=== PATIENT | female | born 1970 | race Two or more races ===

== ENCOUNTER 2018-09-24 02:41 | Emergency (ER) | payer OTHER ==
[2018-09-24 03:00] VITALS: BMI 29.8
[2018-09-24] MEDS ORDERED: SODIUM CHLORIDE 0.9% 1000 ML INFUS.BAG IV SCH (04:00)
--- NOTE | 2018-09-24 04:00 | PDOC ---
History of Present Illness - General Chief Complaint: Pain Stated Complaint: ABD PAIN/FEVER Time Seen by Provider: 09/24/18 03:43 History Source: Patient Exam Limitations: No Limitations - History of Present Illness Travel History: No Initial Comments: 09/24/18 03:55 HISTORY OF PRESENT ILLNESS: 48-year-old woman past medical history of uterine fibroids presents emergency Department with 1 day of fever, weakness and abdominal pain. Patient reports took Tylenol earlier today help the pain which has been mildly relief since that time. She reports feeling "dehydrated" has been drinking plenty of fluids since earlier today. Patient reports feeling intermittent nausea but has not vomited. She denies any chest pain, shortness of breath, cough, diarrhea, rectal bleeding, dysuria, vaginal bleeding, vaginal discharge. No recent travel or sick contacts. PAST MEDICAL HISTORY: see hpi SURGICAL HISTORY: Denies ALLERGIES: No known drug allergies REVIEW OF SYSTEMS General/Constitutional: +fever and chills. Denies weakness, weight change. HEENT: Denies change in vision. Denies ear pain or discharge. Denies sore throat. Cardiovascular: Denies chest pain or shortness of breath. Respiratory: Denies cough, wheezing, or hemoptysis. Gastrointestinal: Denies vomiting, diarrhea or constipation. Denies rectal bleeding. +nausea, +abd pain Genitourinary: Denies dysuria, frequency, or change in urination. Musculoskeletal: Denies joint or muscle swelling or pain. Denies neck or back pain. Skin and breasts: Denies rash or easy bruising. Neurologic: Denies headache, vertigo, loss of consciousness, or loss of sensation. Psychiatric: Denies depression or anxiety. Endocrine: Denies increased thirst. Denies abnormal weight change. Hematologic/Lymphatic: Denies anemia, easy bleeding, or history of blood clots. Allergic/Immunologic: Denies hives or skin allergy. Denies latex allergy. PHYSICAL EXAM General Appearance: Well-appearing, appropriately dressed. No apparent distress , no intoxication. HEENT: EOMI, PERRLA, normal voice, TMs normal. No conjunctival pallor. No photophobia, scleral icterus. Oropharynx erythematous with tonsillar erythema and exudate. Neck: Supple. Trachea midline. No tenderness, rigidity, carotid bruit, stridor , lymphadenopathy, or thyromegaly. Respiratory/Chest: Lungs CTAB. No shortness of breath, chest tenderness, respiratory distress, accessory muscle use. No crackles, rales, rhonchi, stridor , wheezing, dullness Cardiovascular: RRR. S1, S2. No JVD, murmur, bradycardia, tachycardia. Vascular Pulses: Dorsalis-Pedis (R): 2+, Dorsalis-Pedis (L): 2+ Gastrointestinal/Abdominal: Normal bowel sounds. Abdomen soft, non-distended. RLQ tenderness with guarding. No rebound tenderness. No organomegaly, pulsatile mass, hernia, hepatomegaly, splenomegaly. Lymphatic: No adenopathy, tenderness. Musculoskeletal/Extremities: Normal inspection. FROM of all extremities, normal capillary refill. Pelvis Stable. No CVA tenderness. No tenderness to extremities, pedal edema, swelling, erythema or deformity. Integumentary: Appropriate color, dry, warm. 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 Fully oriented, alert. Appropriate mood/affect. Motor strength 5/5. No appreciable EOM palsy, facial droop or sensory deficit. 09/24/18 04:50 Past History - Past Medical History Allergies/Adverse Reactions: Allergies Allergy/AdvReac Type Severity Reaction Status Date / Time No Known Allergies Allergy Verified 09/24/18 03:00 Home Medications: Ambulatory Orders Amoxicillin - [Amoxicillin 500mg Capsule -] 500 mg PO BID #20 capsule 09/24/18 COPD: No - Suicide/Smoking/Psychosocial Hx Smoking History: Never smoked Have you smoked in the past 12 months: No Information on smoking cessation initiated: No Hx Alcohol Use: No Drug/Substance Use Hx: No Substance Use Type: None *Physical Exam - Vital Signs Last Vital Signs Temp Pulse Resp BP Pulse Ox 100.4 F H 99 H 19 105/71 98 09/24/18 02:57 09/24/18 02:57 09/24/18 02:57 09/24/18 02:57 09/24/18 02:57 Moderate Sedation - Procedure Monitoring Vital Signs: Procedure Monitoring Vital Signs Temperature 100.4 F H 09/24/18 02:57 Pulse Rate 99 H 09/24/18 02:57 Respiratory Rate 19 09/24/18 02:57 Blood Pressure 105/71 09/24/18 02:57 O2 Sat by Pulse Oximetry (%) 98 09/24/18 02:57 ED Treatment Course - LABORATORY CBC & Chemistry Diagram: 09/24/18 04:33 09/24/18 04:33 - RADIOLOGY Radiology Studies Ordered: Category Date Time Status CHEST X-RAY PORTABLE* [RAD] Stat Radiology 09/24/18 03:52 Ordered Medical Decision Making - Medical Decision Making 09/24/18 03:59 A/P: 48-year-old woman with history of fibroids presents emergency department for abdominal pain and fever for one day Oropharynx Erythematous with tonsillar exudate present. Lungs clear to auscultation bilaterally Abdomen with right lower quadrant tenderness and guarding. No rebound tenderness elicited DDx: Appendicitis, bowel obstruction, perforation, strep throat, UTI, sepsis This patient meets SIRS criteria. I will perform a sepsis workup with presumed GI or source This patient has abdominal pain. I will obtain a lipase and urine testing in addition to sepsis workup 09/24/18 06:33 X-rays read by me: Angles clear. No focal consolidations or infiltrates noted. Cardiac silhouette is within normal limits. Rapid strep testing is positive. White count 11.1 with a left shift. Urinalysis 3+ blood, no signs of infection. CT results as read by imaging relationship executive: Negative for appendicitis. However, there is mild thickening/edema of the bourgeois of the right colon to the lesser extent the transverse and descending colon. These findings most likely represent acute colitis. There is some thickening of the bourgeois of the terminal ileum similar may be ileitis as well. No bowel obstruction free air or free fluid. Results are consistent with positive streptococcal infection. I'll treat the patient with amoxicillin as an outpatient and have her follow-up with her primary doctor as needed. I discussed the physical exam findings, ancillary test results and final diagnoses with the patient. I answered all of the patient's questions. The patient was satisfied with the care received and felt comfortable with the discharge plan and treatment plan. The patient will call their primary care physician within 24 hours to arrange follow-up and will return to the Emergency Department with any new, persistent or worsening symptoms. *DC/Admit/Observation/Transfer Diagnosis at time of Disposition: Strep pharyngitis - Discharge Dispostion Disposition: HOME Condition at time of disposition: Stable Decision to Admit order: No - Prescriptions Prescriptions: Amoxicillin - [Amoxicillin 500mg Capsule -] 500 mg PO BID #20 capsule - Referrals Referrals: Jona Barajas MD [Primary Care Provider] - - Patient Instructions Additional Instructions: Take amoxicillin as prescribed. Salt water garggles. Throw away your toothbrush in 3 days and start using a new toothbrush. No sharing of drinks, utensils or toothbrushes. Take Motrin as directed by survey supervisor's instructions. Return to ED for worsening fevers, worsening sore throat, chest pain, shortness of breath or any other concerns. - Post Discharge Activity Forms/Work/School Notes: Back to Work
[2018-09-24] MEDS ORDERED: morphine CARPU-JECT 4 MG/1 ML DISP.SYRIN IVPUSH ONE (04:37)
[2018-09-24] MEDS ORDERED: morphine SULFATE 4 MG/ML VIAL ONE (04:56)
[2018-09-24 05:16] LABS: BASO % 0.2 % (0-2.0); HEMATOCRIT 40.1 % (32.4-45.2); LYMPH % 6.5 % (8-40); MCH 27.7 pg (25.7-33.7); MCHC 32.5 g/dl (32.0-36.0); MEAN CELL VOLUME 85.3 fl (80-96); MEAN PLT VOLUME 9.4 fl (7.5-11.1); MONO % 2.7 % (3.8-10.2); NEUT % 90.6 % (42.8-82.8); PLATELET COUNT 297 K/MM3 (134-434); WHITE BLOOD COUNT 11.1 K/mm3 (4.0-10.0)
[2018-09-24 05:20] LABS: VENOUS PC02 38.3 mmHg (38-52); VENOUS PH 7.4 (7.32-7.42); VENOUS PO2 46.3 mmHg (28-48)
[2018-09-24 05:56] LABS: INR 1.18 (0.83-1.09)
[2018-09-24 05:59] LABS: ACTIVATED PTT 30.4 SECONDS (25.2-36.5); ALBUMIN 3.9 g/dl (3.4-5.0); ALK PHOS 84 U/L (45-117); ANION GAP 12 MMOL/L (8-16); BLOOD UREA NITROGEN 9 mg/dL (7-18); CALCIUM 8.4 mg/dL (8.5-10.1); CHLORIDE 101 mmol/L (98-107); CO2 24 mmol/L (21-32); CREATININE 0.8 mg/dL (0.55-1.3); GLUCOSE,RANDOM 111 mg/dL (74-106); LIPASE 95 U/L (73-393); POTASSIUM 3.7 mmol/L (3.5-5.1); SGOT/AST 26 U/L (15-37); SGPT/ALT 47 U/L (13-61); SODIUM 137 mmol/L (136-145); TOT PROT 7.3 g/dl (6.4-8.2)
[2018-09-24 06:02] LABS: URINE APPEARANCE CLEAR; URINE BILIRUBIN NEGATIVE (<2.0 mg/dL); URINE COLOR LTYELLOW; URINE GLUCOSE (UA) NEGATIVE (NEGATIVE); URINE KETONE NEGATIVE (NEGATIVE); URINE LEUK ESTERASE NEGATIVE (NEGATIVE); URINE NITRITE NEGATIVE (NEGATIVE); URINE PROTEIN NEGATIVE (NEGATIVE); URINE UROBILINOGEN NEGATIVE mg/dL (0.2-1.0)
[2018-09-24 06:34] LABS: EPI CELLS RARE /HPF (FEW)
[2018-09-24 06:44] VITALS: BP 97/56; PULSE 76; TEMP 97.9
== END 2018-09-24 07:11 | disposition home or self-care (01) ==
LOC: JER 02:41
DX: J02.0 Streptococcal pharyngitis (principal)
CPT/HCPCS: 36415; 71045-TC-FY; 74177-TC; 80053; 81003; 81015; 82803; 83605; 83690; 84484; 84703; 85025; 85610; 85730; 87040; 87070; 87086; 99285-25; J7030